=== PATIENT | female | born 1985 | race Caucasian/White ===

== ENCOUNTER 2019-08-16 06:06 | Day surgery (SDC) | payer BC ==
[2019-08-10 11:11] LABS: BASOPHILS % (AUTO) 0.9 % (0.0-2.0); EOSINOPHILS % (AUTO) 0.8 % (0.0-4.0); HEMATOCRIT 43.7 % (36-48); HEMOGLOBIN 14.6 g/dL (12.0-16.0); LYMPHOCYTES # (AUTO) 2.7 K/uL (2.5-16.5); LYMPHOCYTES % (AUTO) 50.4 % (20.5-51.1); MEAN CORPUSCULAR HEMOGLOBIN 30 pg (27-31); MEAN CORPUSCULAR HGB CONC 33 g/dL (33-37); MEAN CORPUSCULAR VOLUME 89.3 fL (80-94); MONOCYTES # (AUTO) 0.4 K/uL (0.8-1.0); MONOCYTES % (AUTO) 7.3 % (1.7-9.3); NEUTROPHILS # (AUTO) 2.2 K/uL (1.8-7.7); NEUTROPHILS % (AUTO) 40.6 % (42.2-75.2); PLATELET COUNT (AUTO) 251 K/uL (140-450); RED CELL DISTRIBUTION WIDTH 13.9 % (11.6-13.7); WHITE BLOOD COUNT (AUTO) 5.3 K/uL (4.8-10.8)
[2019-08-10 11:35] LABS: ANION GAP 13.3 (8-16); CARBON DIOXIDE 28.8 mmol/L (21-32); POTASSIUM 4.1 mmol/L (3.5-5.1)
[2019-08-10 11:36] LABS: CREATININE 0.8 mg/dL (0.6-1.3); TOTAL BILIRUBIN 0.5 mg/dL (0.0-1.0)
[~2019-08-16] VITALS: Ht 154.9 cm; Wt 55.8 kg
[2019-08-16] MEDS ORDERED: BUPIVACAINE-MPF 0.25% 30 ML VIAL INJ ONE (07:17)
[2019-08-16] MEDS ORDERED: fentaNYL 0.05 MG/ML VIAL ONE (08:17)
[2019-08-16] MEDS ORDERED: SEVOFLURANE 250 ML BTL INH ONE (08:17)
[2019-08-16] MEDS ORDERED: ePHEDrine 50 MG/ML VIAL ONE (08:17)
[2019-08-16] MEDS ORDERED: LIDOCAINE 2% 100 MG/5 ML SYR IVP ONE (08:17)
[2019-08-16] MEDS ORDERED: MIDAZOLAM 2 MG/2 ML VIAL ONE (08:17)
[2019-08-16] MEDS ORDERED: PROPOFOL 200 MG/20 ML VIAL IV ONE (08:17)
[2019-08-16] MEDS ORDERED: ONDANSETRON 4 MG/2 ML VIAL IVP PRN (09:20)
[2019-08-16] MEDS ORDERED: HYDROcodone/APAP 5/325 MG 1 TAB TAB PO PRN (09:20)
[2019-08-16] MEDS ORDERED: MORPHINE SULFATE 4 MG/ML SYR IV PRN (09:20)
[2019-08-16] MEDS ORDERED: HYDROmorphone 1 MG/ML AMP IVP PRN (09:20)
[2019-08-16] MEDS ORDERED: MORPHINE SULFATE 2 MG/ML SYR IVP PRN (09:20)
== END 2019-08-16 11:10 | disposition home or self-care (01) ==
LOC: MOR 06:06 → MMU 06:06 → MOR 11:10
PROVIDERS: ATTEND Surgery
DX: N63.22 Unspecified lump in the left breast, upper inner quadrant (principal); D24.2 Benign neoplasm of left breast
CPT/HCPCS: 19120; 36415; 71045; 80053; 81025; 85025; 88307; J0690; J2001; J2250; J2704; J3010; J3490; J7060; J7120